=== PATIENT | female | born 1970 | race Caucasian/White ===

== ENCOUNTER 2019-04-20 15:59 | Emergency (ER) | payer OTHER ==
[2019-04-20 17:15] LABS: ADD MAN DIFF? NO
[2019-04-20 17:16] LABS: WHITE BLOOD COUNT 14.6 10^3/ul (4.8-10.8)
[2019-04-20 17:16] LABS: BASOPHILS % 0.2 % (0.0-2.0); HEMATOCRIT 44.7 % (37.0-47.0); HEMOGLOBIN 15.5 g/dl (12.0-16.0); LYMPHOCYTES # 1.5 10^3/ul (0.8-2.9); LYMPHOCYTES % 10.5 % (15.0-51.0); MEAN CORPUSCULAR HEMOGLOBIN 30.2 pg (29.0-33.0); MEAN CORPUSCULAR HGB CONC 34.7 g/dl (32.0-37.0); MEAN PLATELET VOLUME 10.6 fl (7.4-10.4); MONOCYTE # 0.9 10^3/ul (0.3-0.9); MONOCYTES % 6.3 % (0.0-11.0); NEUTROPHILS % 82.5 % (39.0-77.0); PLATELET COUNT 314 10^3/UL (140-415); RED BLOOD COUNT 5.14 10^6/ul (4.20-5.40); RED CELL DISTRIBUTION WIDTH 12.4 % (11.5-14.5)
[2019-04-20] MEDS: LORAZEPAM 2 MG INJ IV (17:16)
[2019-04-20] MEDS: KETOROLAC 15 MG INJ IV (17:16)
[2019-04-20 17:35] LABS: ALANINE AMINOTRANSFERASE 83 IU/L (13-69); ALBUMIN/GLOBULIN RATIO 1.11; ALKALINE PHOSPHATASE 70 IU/L (42-121); ANION GAP 11 (5-13); ASPARTATE AMINO TRANSFERASE 66 IU/L (15-46); BILIRUBIN,INDIRECT 0.6 mg/dl (0-1.1); BILIRUBIN,TOTAL 0.6 mg/dl (0.2-1.3); BLOOD UREA NITROGEN 16 mg/dl (7-20); CALCIUM 9.9 mg/dl (8.4-10.2); CARBON DIOXIDE 28 mmol/L (21-31); CHLORIDE 104 mmol/L (97-110); CREATININE 0.67 mg/dl (0.44-1.00); Estimated GFR > 60 mL/min (>60); GLUCOSE 120 mg/dl (70-220); POTASSIUM 3.5 mmol/L (3.5-5.1); SODIUM 143 mmol/L (135-144); TOTAL PROTEIN 9.5 g/dl (6.1-8.1)
[2019-04-20] MEDS: SOD CHLORIDE 0.9% 100 ML (18:08)
[2019-04-20] MEDS: IOHEXOL 300MG/ML 150 ML BTL (18:08)
== END 2019-04-20 19:42 | disposition home or self-care (01) ==
LOC: FTE 15:59
DX: M79.601 Pain in right arm (principal); M79.604 Pain in right leg; R10.9 Unspecified abdominal pain; R07.9 Chest pain, unspecified
CPT/HCPCS: 71260; 73060-RT; 73080-RT; 73550; 73552; 73562; 73590; 74177; 80053; 81025; 85025; 93971; 96374; 96375; 99285-25